=== PATIENT | male | born 2000 | race Two or more races ===

== ENCOUNTER 2024-12-06 15:29 | Emergency (ER) | payer OTHER ==
[~2024-12-06] VITALS: Ht 177.8 cm; Wt 79.4 kg
[2024-12-06] MEDS: METHOCARBAMOL (500MG) 500 MG TABLET PO ONE (17:00)
[2024-12-06] MEDS: KETOROLAC TROMETHAMINE 15 MG/ML VIAL IM ONE (17:00)
[2024-12-06] MEDS ORDERED: KETOROLAC TROMETHAMINE 15 MG/ML VIAL ONE (17:04)
[2024-12-06] MEDS ORDERED: METHOCARBAMOL (500MG) 500 MG TABLET ONE (17:05)
[2024-12-06] MEDS ORDERED: METH-647 PO (19:05)
[2024-12-06] MEDS ORDERED: LIDO30AD10 TP (19:05)
[2024-12-06] MEDS ORDERED: IBUP-1953 PO (19:05)
[2024-12-06] MEDS ORDERED: METH4TAB3 PO (19:05)
[2024-12-06 19:27] VITALS: BP 125/80; TEMP 98; O2SAT 99
== END 2024-12-06 19:28 | disposition home or self-care (01) ==
LOC: ER 15:38
DX: M54.12 Radiculopathy, cervical region (principal); M41.9 Scoliosis, unspecified; R20.2 Paresthesia of skin; Z88.0 Allergy status to penicillin
CPT/HCPCS: 99285; 72125; 96372; J1885